=== PATIENT | male | born 2000 | race Two or more races ===

== ENCOUNTER 2019-11-03 20:23 | Emergency (ER) | payer BC, OTHER ==
[~2019-11-03] VITALS: Ht 172.7 cm; Wt 63.5 kg
[2019-11-03 20:25] VITALS: BP 146/69
--- NOTE | 2019-11-03 20:44 | NUR ---
PA AT BEDSIDE FOR EVAL.
[2019-11-03] MEDS ORDERED: NAPROXEN 250 MG TABLET ONE (20:58)
[2019-11-03] MEDS ORDERED: NAPROXEN 500 MG TABLET PO SCH (21:00)
--- NOTE | 2019-11-03 21:05 | NUR ---
Patient discharged to home in stable condition. Rx and Written and verbal after care instructions given. Patient verbalizes understanding of instruction.
== END 2019-11-03 21:06 | disposition home or self-care (01) ==
LOC: ER 20:25
DX: M26.621 Arthralgia of right temporomandibular joint (principal); H92.03 Otalgia, bilateral